=== PATIENT | female | born 1960 | race Two or more races ===

== ENCOUNTER 2018-08-01 10:18 | Emergency (ER) | payer OTHER ==
[~2018-08-01] VITALS: Ht 170.2 cm; Wt 100.7 kg
[~2018-08-01 10:18] MED LIST: DILTIAZEM 2% RECTAL; POLY119PG PO; RECTICARE30 GM TP
[2018-08-01] MEDS ORDERED: SYNTHROID100 MCG (11:11)
[2018-08-01] MEDS ORDERED: ATACAND16 MG (11:11)
[2018-08-01] MEDS ORDERED: PROVENTIL HFA6.7 GM (11:12)
== END 2018-08-01 18:19 | disposition home or self-care (01) ==
LOC: ER 10:18
DX: K57.90 Diverticulosis of intestine, part unspecified, without perforation or abscess without bleeding (principal); K58.9 Irritable bowel syndrome, unspecified

== ENCOUNTER 2018-09-13 07:30 | Day surgery (SDC) | payer OTHER ==
[~2018-09-13 07:30] MED LIST changes: +ATACAND16 MG; +PROVENTIL HFA6.7 GM; +SYNTHROID100 MCG
== END 2018-09-13 14:10 | disposition home or self-care (01) ==
LOC: AMB-ENDOS 07:30
DX: K57.32 Diverticulitis of large intestine without perforation or abscess without bleeding (principal); K64.8 Other hemorrhoids